=== PATIENT | female | born 1995 | race Caucasian/White ===

== ENCOUNTER 2018-10-16 09:04 | Emergency (ER) | payer OTHER ==
[~2018-10-16] VITALS: Ht 160 cm; Wt 112.5 kg
[2018-10-16 10:06] VITALS: BP 151/95; Ht 160 cm; Wt 112.5 kg
== END 2018-10-16 11:57 | disposition home or self-care (01) ==
LOC: ED 09:04
DX: S83.91XA Sprain of unspecified site of right knee, initial encounter (principal); X58.XXXA Exposure to other specified factors, initial encounter; Y93.01 Activity, walking, marching and hiking; Y92.89 Other specified places as the place of occurrence of the external cause; Y99.8 Other external cause status

== ENCOUNTER 2018-12-06 18:21 | Emergency (ER) | payer MEDICAID, OTHER | END 2018-12-06 21:13 | disposition home or self-care (01) | LOC: ED 18:21 ==

== ENCOUNTER 2019-02-21 01:46 | Emergency (ER) | payer MEDICAID ==
[~2019-02-21] VITALS: Ht 157.5 cm; Wt 117.9 kg
[2019-02-21 01:51] VITALS: Ht 157.5 cm; Wt 117.9 kg
[2019-02-21 03:10] LABS: BASOPHIL % 0.4 % (0-2); PLATELET COUNT 134 x10^3mcL (130-400); RED CELL DISTRIBUTION WIDTH 12.4 % (11.5-14.5)
[2019-02-21 04:05] VITALS: BP 115/58
== END 2019-02-21 04:05 | disposition home or self-care (01) ==
LOC: ED 01:46
PROVIDERS: Emergency Medicine
DX: O20.0 Threatened abortion (principal); Z98.890 Other specified postprocedural states
CPT/HCPCS: 36415